=== PATIENT | female | born 1990 | race Caucasian/White ===

== ENCOUNTER 2017-10-30 01:04 | Emergency (ER) | payer MEDICAID ==
[~2017-10-30] VITALS: Ht 170.2 cm; Wt 73.2 kg
[2017-10-30 01:05] VITALS: BP 157/93
[2017-10-30] MEDS ORDERED: LIDOCAINE 2%, 20ML SQ ONE (01:30)
[2017-10-30] MEDS ORDERED: DIPH,PERTUSS(ACELL),TET VAC/PF 0.5 ML IM-VACC ONE ×2 (01:30→01:34)
[2017-10-30] MEDS ORDERED: LIDOCAINE-MPF 1%, 5ML ONE (01:34)
== END 2017-10-30 02:29 | disposition home or self-care (01) ==
LOC: ED 02:09
DX: S51.812A Laceration without foreign body of left forearm, initial encounter (principal); W25.XXXA Contact with sharp glass, initial encounter; Y93.89 Activity, other specified; Y92.009 Unspecified place in unspecified non-institutional (private) residence as the place of occurrence of the external cause; Y99.8 Other external cause status
CPT/HCPCS: 12001; 90471; 90715; 99283